=== PATIENT | male | born 1965 ===

== ENCOUNTER 2017-06-11 16:31 | Inpatient (IN) | payer OTHER ==
[2017-06-11] VITALS (426 sets, daily range): BP systolic 130–133; BP diastolic 88–93; PULSE 84–87; TEMP 97.2–97.7; O2SAT 87–100
[~2017-06-11] VITALS: Ht 177.8 cm; Wt 96.1 kg
[2017-06-11 17:52] LABS: CALCIUM 8.3 mg/dL (8.4-10.2); CREATININE, serum 1.19 mg/dL (0.66-1.25); POTASSIUM 3.6 mmol/L (3.4-5.0)
[2017-06-11 19:43] LABS: CREATININE, serum 1.14 mg/dL (0.66-1.25); POTASSIUM 3.7 mmol/L (3.4-5.0)
[2017-06-11 21:34] LABS: CALCIUM 7.8 mg/dL (8.4-10.2); CREATININE, serum 1.08 mg/dL (0.66-1.25); POTASSIUM 3.3 mmol/L (3.4-5.0)
[2017-06-11 23:47] LABS: CALCIUM 7.9 mg/dL (8.4-10.2); CREATININE, serum 1.26 mg/dL (0.66-1.25); POTASSIUM 3.4 mmol/L (3.4-5.0)
[2017-06-12] VITALS (903 sets, daily range): BP systolic 104–134; BP diastolic 86–97; PULSE 72–91; TEMP 97–98.6; O2SAT 93–100
[2017-06-12 04:01] LABS: CALCIUM 7.6 mg/dL (8.4-10.2); CREATININE, serum 1.06 mg/dL (0.66-1.25); POTASSIUM 3.1 mmol/L (3.4-5.0)
[2017-06-12 06:07] LABS: BASO % 0.7 % (0.0-2.0); EOS # 0.2 (0.0-0.7); EOS % 5.9 % (0-4.0); GRAN # 1.1 (1.4-6.5); GRAN % 36.7 % (42.2-75.2); HEMATOCRIT 42.4 % (42.0-52.0); LYMPH # 1.4 (1.2-3.4); LYMPH % 46.7 % (20.0-51.0); MEAN CELL VOLUME 83 fl (80.0-100.0); MEAN CORPUSCULAR HEMOGLOBIN 27 pg (27.0-31.0); MEAN CORPUSCULAR HGB CONC 33 g/dl (33.0-37.0); MEAN PLATELET VOLUME 10.9 fl (7.4-10.4); MONO # 0.3 (0.1-0.6); MONO % 9.7 % (1.7-9.3); PLATELET COUNT 144 K/mm3 (130-400); RED BLOOD COUNT 5.13 M/mm3 (4.20-5.60); REDCELL DISTRIBUTION WIDTH-CV 13.4 % (11.5-14.5)
[2017-06-12 06:39] LABS: CALCIUM 7.6 mg/dL (8.4-10.2); CREATININE, serum 1.04 mg/dL (0.66-1.25); MAGNESIUM 1.6 mg/dL (1.6-2.3); PHOSPHOROUS 2.8 mg/dL (2.5-4.5); POTASSIUM 3.2 mmol/L (3.4-5.0)
[2017-06-12 07:58] LABS: CALCIUM 7.7 mg/dL (8.4-10.2); CREATININE, serum 1.06 mg/dL (0.66-1.25); POTASSIUM 3.3 mmol/L (3.4-5.0)
[2017-06-12 10:16] LABS: CALCIUM 7.9 mg/dL (8.4-10.2); CREATININE, serum 1.13 mg/dL (0.66-1.25); POTASSIUM 3.6 mmol/L (3.4-5.0)
[2017-06-12 11:55] LABS: CALCIUM 8.1 mg/dL (8.4-10.2); CREATININE, serum 1.06 mg/dL (0.66-1.25); POTASSIUM 3.9 mmol/L (3.4-5.0)
[2017-06-13 02:32] VITALS: BP 128/77; PULSE 73; TEMP 98.6
[2017-06-13 05:20] VITALS: BP 116/74; PULSE 69; TEMP 98
[2017-06-13 07:17] LABS: EOS # 0.2 (0.0-0.7); EOS % 5.1 % (0-4.0); GRAN # 1.3 (1.4-6.5); GRAN % 42.2 % (42.2-75.2); HEMATOCRIT 43.5 % (42.0-52.0); HEMOGLOBIN 14.1 g/dl (13.5-18.0); LYMPH # 1.3 (1.2-3.4); LYMPH % 42.5 % (20.0-51.0); MEAN CELL VOLUME 82 fl (80.0-100.0); MEAN CORPUSCULAR HEMOGLOBIN 27 pg (27.0-31.0); MEAN CORPUSCULAR HGB CONC 32 g/dl (33.0-37.0); MEAN PLATELET VOLUME 11.6 fl (7.4-10.4); MONO # 0.3 (0.1-0.6); MONO % 8.9 % (1.7-9.3); PLATELET COUNT 141 K/mm3 (130-400); RED BLOOD COUNT 5.29 M/mm3 (4.20-5.60); REDCELL DISTRIBUTION WIDTH-CV 13.8 % (11.5-14.5)
[2017-06-13 07:34] LABS: CREATININE, serum 1.12 mg/dL (0.66-1.25)
[2017-06-13 10:27] VITALS: BP 132/85; PULSE 84; TEMP 97.8
[2017-06-13] MEDS ORDERED: PRINIVIL10 MG PO (11:47)
[2017-06-13] MEDS ORDERED: ASPI325T6 PO (11:47)
[2017-06-13] MEDS ORDERED: LOPID 600M600 MG/TAB PO (11:47)
[2017-06-13] MEDS ORDERED: LEVEMIR FLEX100 U/ML SQ (11:52)
[2017-06-13] MEDS ORDERED: NOVOLOG FLEX100 U/ML SQ (11:53)
[2017-06-13] MEDS ORDERED: THE MEDICINE SH1 DE3 MC (11:56)
[2017-06-13] MEDS ORDERED: GLUCOSE TEST ST1 DEV MC (11:56)
[2017-06-13] MEDS ORDERED: LANCETS MC (11:56)
[2017-06-13] MEDS ORDERED: FREESTYLE PREC1 EAC5 MC (11:56)
== END 2017-06-13 14:46 | disposition home or self-care (01) | DRG 638 ==
LOC: ICU 16:31 → SURG 06-12 19:30
PROVIDERS: Family Medicine
DX: E11.10 Type 2 diabetes mellitus with ketoacidosis without coma (principal); N17.9 Acute kidney failure, unspecified; E11.65 Type 2 diabetes mellitus with hyperglycemia; Z86.73 Personal history of transient ischemic attack (TIA), and cerebral infarction without residual deficits; E86.0 Dehydration; E78.1 Pure hyperglyceridemia
CPT/HCPCS: 99223-AI; 99233-AI; J1650; J1815; J3480; J7030; J7042